=== PATIENT | female | born 2000 | race Hispanic/Latino ===

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

== ENCOUNTER 2018-05-11 11:20 | Emergency (ER) | payer OTHER ==
[2018-05-11 11:20] VITALS: BMI 23.4
--- NOTE | 2018-05-11 11:52 | ED PDOC ---
Arrival/HPI - General Historian: Patient - History of Present Illness Narrative History of Present Illness (Text): 05/11/18 11:49 17 y/o female, no significant pmh, nkda, c/o chest pain x 2 days. Pt. stated that she has been having coughing x 3-4 days, chest pain x 2 days, no night sweat, no shortness of breath, no numbness or tingling, no dizziness, no change in vision, no rash, no other medical or psychological complaints. <Harinder Cochran - Last Filed: 05/11/18 13:03> <Daniel Briseno - Last Filed: 05/11/18 14:38> - General Chief Complaint: Chest Pain Past Medical History - Provider Review Nursing Documentation Reviewed: Yes - Past History Past History: No Previous - Infectious Disease Hx of Infectious Diseases: None - Tetanus Immunization Tetanus Immunization: Unknown - Neurological Hx Migraine: Yes - Psychiatric Hx Depression: No Hx Emotional Abuse: No Hx Physical Abuse: No Hx Substance Use: No - Past Surgical History Past Surgical History: No Previous - Suicidal Assessment Feels Threatened In Home Enviroment: No <Harinder Cochran - Last Filed: 05/11/18 13:03> Family/Social History - Physician Review Nursing Documentation Reviewed: Yes Family/Social History: Unknown Family HX Smoking Status: Never Smoked Hx Alcohol Use: No Hx Substance Use: No Hx Substance Use Treatment: No <Harinder Cochran - Last Filed: 05/11/18 13:03> Allergies/Home Meds <Harinder Cochran - Last Filed: 05/11/18 13:03> <Daniel Briseno - Last Filed: 05/11/18 14:38> Allergies/Adverse Reactions: Allergies UNKNOWN ANTIBIOTIC Allergy (Uncoded 05/11/18 11:30) SWELLING Review of Systems - Review of Systems Constitutional: absent: Fatigue, Fevers Eyes: absent: Vision Changes ENT: absent: Hearing Changes, Rhinorrhea Respiratory: Cough. absent: SOB, Sputum, Wheezing Cardiovascular: Chest Pain Gastrointestinal: absent: Abdominal Pain, Diarrhea, Nausea, Vomiting Genitourinary Female: absent: Dysuria Musculoskeletal: absent: Arthralgias, Back Pain Skin: absent: Rash, Pruritis, Skin Lesions Neurological: absent: Headache, Dizziness Psychiatric: absent: Anxiety, Depression, Suicidal Ideation <Harinder Cochran - Last Filed: 05/11/18 13:03> Physical Exam Vital Signs Reviewed: Yes Vital Signs Temp Pulse Resp BP Pulse Ox 05/11/18 11:40 97.5 F L 89 19 122/67 98 Temperature: Afebrile Blood Pressure: Normal Pulse: Regular Respiratory Rate: Normal Appearance: Positive for: Well-Appearing, Non-Toxic, Comfortable Pain Distress: Mild Mental Status: Positive for: Alert and Oriented X 3 - Systems Exam Head: Present: Atraumatic, Normocephalic Pupils: Present: PERRL Extroacular Muscles: Present: EOMI Conjunctiva: Present: Normal Mouth: Present: Moist Mucous Membranes Neck: Present: Normal Range of Motion Respiratory/Chest: Present: Clear to Auscultation, Good Air Exchange, Other (pain is reproducible by palpating the anterior lt. pectoralis major muscle region. ). No: Respiratory Distress, Accessory Muscle Use, Wheezes, Decreased Breath Sounds, Rales, Retracting, Rhonchi, Tachypneic, Tender to Palpation Cardiovascular: Present: Regular Rate and Rhythm, Normal S1, S2, Peripheal Pulses Present. No: Murmurs Abdomen: No: Tenderness, Distention, Peritoneal Signs, Rebound, Guarding Back: Present: Normal Inspection Upper Extremity: Present: Normal Inspection. No: Cyanosis, Edema Lower Extremity: Present: Normal Inspection. No: Edema Neurological: Present: GCS=15, CN II-XII Intact, Speech Normal, Motor Func Grossly Intact, Normal Cerebellar Funct, Gait Normal, Memory Normal Skin: Present: Warm, Dry, Normal Color. No: Rashes Psychiatric: Present: Alert, Oriented x 3, Normal Insight, Normal Concentration <Harinder Cochran - Last Filed: 05/11/18 13:03> Vital Signs Temp Pulse Resp BP Pulse Ox 05/11/18 13:39 98.2 F 73 18 124/76 100 05/11/18 13:25 98 F 58 L 19 127/53 L 100 05/11/18 11:40 97.5 F L 89 19 122/67 98 <Daniel Briseno - Last Filed: 05/11/18 14:38> Medical Decision Making ED Course and Treatment: 05/11/18 11:51 -Labs -EKG -Chest xray -IV toradol -observe and reassess 05/11/18 13:04 -EKG: NSR @ 81 BPM, no ST elevation or depression, T wave inversion lead III. -Chest xray No focal consolidation. -Labs are non-significant -Dimer and trop after 24 hours are negative, low HEART score, PERC negative, Pain relief with the toradol IV, no pain now, discussed about the labs/radiology results, pt. request discharge home. -Bed side sonogram show there is no visible pericardial effusion noted. Pt. has no chest pain or cough -Discharge home with motrin, tessalon, bed rest, avoid strenuous exercise and activity, followup with your own pmd and software development engineer within 2 days, return to the ER for any new or worsening signs or symptoms. - RAD Interpretation Radiology Orders: HISTORY: medical clearance COMPARISON: None available. TECHNIQUE: Chest, one view. FINDINGS: LUNGS: No focal consolidation. Please note that chest x-ray has limited sensitivity for the detection of pulmonary masses. PLEURA: No significant pleural effusion identified. No definite pneumothorax . CARDIOVASCULAR: Heart size appears within normal limits. OSSEOUS STRUCTURES: No acute osseous abnormality identified. VISUALIZED UPPER ABDOMEN: Unremarkable. OTHER FINDINGS: None. IMPRESSION: No focal consolidation. Sprinkler Worker: Radiologist - EKG Interpretation EKG Interpretation (Text): 05/11/18 11:52 EKG: NSR @ 81 BPM, no ST elevation or depression, T wave inversion lead III. Interpreted by ED Physician: Yes Type: 12 lead EKG <Harinder Cochran Q - Last Filed: 05/11/18 13:03> - Lab Interpretations Lab Results: D-Dimer, Quantitative < 200 ng/mlDDU (0-243) 05/11/18 12:20 Troponin I < 0.01 ng/mL 05/11/18 12:20 Total Bilirubin 0.3 mg/dL (0.2-1.3) 05/11/18 12:20 AST 29 U/L (14-36) 05/11/18 12:20 ALT 19 U/L (7-56) 05/11/18 12:20 Alkaline Phosphatase 70 U/L (38-126) 05/11/18 12:20 Total Protein 7.3 g/dL (5.8-8.3) 05/11/18 12:20 Albumin 4.2 g/dL (3.0-4.8) 05/11/18 12:20 Globulin 3.1 gm/dL 05/11/18 12:20 Albumin/Globulin Ratio 1.4 (1.1-1.8) 05/11/18 12:20 Lipase 88 U/L (23-300) 05/11/18 12:20 Urine Color Yellow (YELLOW) 05/11/18 12:20 Urine Appearance Clear (CLEAR) 05/11/18 12:20 Urine pH 6.5 (4.7-8.0) 05/11/18 12:20 Ur Specific Pixley >= 1.030 (1.005-1.035) 05/11/18 12:20 Urine Protein 30 mg/dL (<30 mg/dL) H 05/11/18 12:20 Urine Glucose (UA) Negative mg/dL (NEGATIVE) 05/11/18 12:20 Urine Ketones Negative mg/dL (NEGATIVE) 05/11/18 12:20 Urine Blood Negative (NEGATIVE) 05/11/18 12:20 Urine Nitrate Negative (NEGATIVE) 05/11/18 12:20 Urine Bilirubin Negative (NEGATIVE) 05/11/18 12:20 Urine Urobilinogen 0.2 E.U./dL (<1 E.U./dL) 05/11/18 12:20 Ur Leukocyte Esterase Negative Abbe/uL (NEGATIVE) 05/11/18 12:20 Urine RBC 0 - 2 /hpf (0-2) 05/11/18 12:20 Urine WBC 0 - 2 /hpf (0-6) 05/11/18 12:20 Ur Epithelial Cells 6 - 8 /hpf (0-5) H 05/11/18 12:20 Amorphous Sediment Few /hpf (NONE) 05/11/18 12:20 Urine Bacteria Neg /hpf (NONE) 05/11/18 12:20 Urine Other Mucus /hpf 05/11/18 12:20 - RAD Interpretation Radiology Orders: 05/11/18 11:49 CHEST PORTABLE [RAD] Stat - Medication Orders Current Medication Orders: Discontinued Medications Ketorolac Tromethamine (Toradol) 30 mg IVP STAT STA Stop: 05/11/18 11:49 Last Admin: 05/11/18 12:14 Dose: 30 mg MAR Pain Assessment Document 05/11/18 12:14 GMI (Rec: 05/11/18 12:14 [facility] [id number] Pain Reassessment Is this a pain reassessment? Yes Sleep Is patient sleeping during reassessment? No Presence of Pain Presence of Pain Yes Pain Scale Used Protocol: PSCALES Pain Scale Used Numeric Location Upper or Lower Upper Pain Location Body Site Chest Description Description Intermittent Intensity of Pain at present 3 Pain Behavior Facial Grimacing Alleviating Factors/Management Distraction Techniques Alleviating Factors Distraction IVP Administration Document 05/11/18 12:14 GMI (Rec: 05/11/18 12:14 [id number] Charges for Administration # of IVP Administrations 1 <Daniel Briseno - Last Filed: 05/11/18 14:38> - PA / FLAME ANNEALING MACHINE SETTER / Resident Statement NANCY has reviewed & agrees with the documentation as recorded. <Harinder Cochran - Last Filed: 05/11/18 13:03> - PA / FLAME ANNEALING MACHINE SETTER / Resident Statement NANCY has reviewed & agrees with the documentation as recorded. <Daniel Briseno - Last Filed: 05/11/18 14:38> Disposition/Present on Arrival - Present on Arrival Any Indicators Present on Arrival: No History of DVT/PE: No History of Uncontrolled Diabetes: No Urinary Catheter: No History of Decub. Ulcer: No History Surgical Site Infection Following: None - Disposition Have Diagnosis and Disposition been Completed?: Yes Disposition Time: 13:28 Patient Plan: Discharge <Harinder Cochran - Last Filed: 05/11/18 13:03> <Daniel Briseno - Last Filed: 05/11/18 14:38> - Disposition Diagnosis: Atypical chest pain, Cough Disposition: HOME/ ROUTINE Condition: IMPROVED Discharge Instructions (ExitCare): Chest Pain (ED) Additional Instructions: -Discharge home with motrin, tessalon, bed rest, avoid strenuous exercise and activity, followup with your own pmd and software development engineer/uke driver within 2 days, return to the ER for any new or worsening signs or symptoms. Prescriptions: Benzonatate [Tessalon Perles] 100 mg PO TID PRN #21 sgl PRN Reason: Other Ibuprofen [Motrin] 600 mg PO QID PRN #30 tab PRN Reason: Other Referrals: [facility] [place] - Follow up with primary Eduardo Davalos MD [Staff Provider] - Follow up with primary Mitesh Garcia MD [Staff Provider] - Follow up with primary Forms: [facility] (Serbian), WORK NOTE
--- NOTE | 2018-05-11 12:19 | RAD ---
HISTORY: medical clearance COMPARISON: None available. TECHNIQUE: Chest, one view. FINDINGS: LUNGS: No focal consolidation. Please note that chest x-ray has limited sensitivity for the detection of pulmonary masses. PLEURA: No significant pleural effusion identified. No definite pneumothorax . CARDIOVASCULAR: Heart size appears within normal limits. OSSEOUS STRUCTURES: No acute osseous abnormality identified. VISUALIZED UPPER ABDOMEN: Unremarkable. OTHER FINDINGS: None. IMPRESSION: No focal consolidation.
[2018-05-11 12:40] LABS: ALB/GLOB RATIO 1.4 (1.1-1.8); ALBUMIN 4.2 g/dL (3.0-4.8); ALT/SGPT 19 U/L (7-56); AST/SGOT 29 U/L (14-36); BLOOD UREA NITROGEN 11 mg/dL (7-21); CALCIUM 9.3 mg/dL (8.4-10.5); GFR NON-AFRICAN AMERICAN > 60; LIPASE 88 U/L (23-300)
[2018-05-11 12:41] LABS: BASO # 0.01 K/mm3 (0.0-2.0); BASO % 0.2 % (0.0-3.0); EOS % 0.5 % (1.5-5.0); HEMOGLOBIN 12.8 g/dL (12.0-16.0); LYMPH # 0.9 (1.2-3.4); LYMPH % 14.8 % (22.0-35.0); MEAN CELL VOLUME 89.6 fl (80.0-105.0); MEAN CORPUSCULAR HEMOGLOBIN 30.9 pg (25.0-35.0); MEAN CORPUSCULAR HGB CONC 34.5 g/dl (31.0-37.0); MEAN PLATELET VOLUME 9.5 fl (7.0-11.0); MONO # 0.5 (0.1-0.6); PH,URINE 6.5 (4.7-8.0); RBC 4.14 10^6/uL (3.5-6.1); RED CELL DISTRIBUTION WIDTH 12.2 % (11.5-14.5); URINE BILIRUBIN NEGATIVE (NEGATIVE); URINE BLOOD NEGATIVE (NEGATIVE); URINE GLUCOSE (UA) NEGATIVE (NEGATIVE); URINE LEUKOCYTE ESTERASE NEGATIVE Leu/uL (NEGATIVE); URINE PROTEIN 30 mg/dL (<30 mg/dL); URINE UROBILINOGEN 0.2 E.U./dL (<1 E.U./dL); WHITE BLOOD COUNT 5.9 10^3/uL (4.5-11.0)
[2018-05-11 12:44] LABS: URINE APPEARANCE CLEAR (CLEAR); URINE COLOR YELLOW (YELLOW)
[2018-05-11 12:51] LABS: TROPONIN I < 0.01 ng/mL
[2018-05-11 12:53] LABS: URINE RBC 0 - 2 /hpf (0-2)
[2018-05-11 12:54] LABS: URINE AMORPHOUS SEDIMENT FEW /hpf; URINE BACTERIA NEG /hpf; URINE WBC 0 - 2 /hpf (0-6)
[2018-05-11 13:26] VITALS: O2SAT 100
[2018-05-11 13:40] VITALS: BP 124/76; PULSE 73; RESP 18; TEMP 98.2
--- NOTE | 2018-05-11 14:35 | CARD ---
APPROVED REPORT Date of service: 05/11/2018 EKG Measurement Heart [id number] <Conclusion> Normal sinus rhythm with sinus arrhythmia Normal ECG
== END 2018-05-11 13:38 | disposition home or self-care (01) ==
LOC: ED 11:20
DX: R07.89 Other chest pain (principal); R05 Cough
CPT/HCPCS: 71045; 80053; 81001; 81025; 83690; 83735; 84484; 85025; 85378; 93005; 96374; 99284; J1885

== ENCOUNTER 2018-05-17 00:05 | Emergency (ER) | payer OTHER | END 2018-05-17 01:32 | disposition home or self-care (01) | LOC: ED 00:05 ==